=== PATIENT | male | born 2000 | race Hispanic/Latino ===

== ENCOUNTER 2018-11-29 14:02 | Emergency (ER) | payer SELFPAY ==
[~2018-11-29] VITALS: Ht 167.6 cm; Wt 63.0 kg
[2018-11-29 15:00] VITALS: BP 114/57
== END 2018-11-29 15:00 | disposition home or self-care (01) | DRG 950 ==
LOC: ED 14:02
DX: S61.214D Laceration without foreign body of right ring finger without damage to nail, subsequent encounter (principal); X58.XXXD Exposure to other specified factors, subsequent encounter